=== PATIENT | female | born 1995 | race Caucasian/White ===

== ENCOUNTER 2017-07-12 03:35 | Emergency (ER) | payer MEDICAID ==
[2017-07-12] MEDS ORDERED: LIDOcaine 1.5% w/epinephrine 1:200,000 5ml ampul IJ ONE (04:05)
[2017-07-12] MEDS ORDERED: TETanus/Pertussis (Acell)/Diphther VAC/PF (Tdap-Adult) 0.5ml syringe IMVAC ONE (04:05)
[2017-07-12 05:51] VITALS: BP 128/81
== END 2017-07-12 05:30 | disposition home or self-care (01) ==
LOC: ER 03:36
DX: S61.411A Laceration without foreign body of right hand, initial encounter (principal); F10.129 Alcohol abuse with intoxication, unspecified; F12.10 Cannabis abuse, uncomplicated; Y90.9 Presence of alcohol in blood, level not specified; W01.110A Fall on same level from slipping, tripping and stumbling with subsequent striking against sharp glass, initial encounter; Y93.89 Activity, other specified; Y92.090 Kitchen in other non-institutional residence as the place of occurrence of the external cause; Y99.8 Other external cause status
CPT/HCPCS: 12001; 73120; 99284; A6449; J3490

== ENCOUNTER 2022-07-27 09:44 | Emergency (ER) | payer MEDICAID ==
[~2022-07-27] VITALS: Ht 162.6 cm; Wt 119.2 kg
[2022-07-27 10:29] LABS: BASOPHILS # (AUTO) 0.1 X10'3 (0-0.2); BASOPHILS % (AUTO) 0.5 % (0-1); EOSINOPHILS # (AUTO) 0.4 X10'3 (0-0.9); EOSINOPHILS % (AUTO) 3.8 % (0-6); HEMATOCRIT 43.3 % (35.0-45.0); HEMOGLOBIN 14.5 g/dl (12.0-16.0); LYMPHOCYTES % (AUTO) 19.2 % (21-51); MEAN CORPUSCULAR HGB CONC 33.4 g/dL (33.0-36.5); MEAN CORPUSCULAR VOLUME 86.7 FL (78-98); MEAN PLATELET VOLUME 8.8 FL (7.4-10.4); MONOCYTES # (AUTO) 0.4 X10'3 (0-0.9); MONOCYTES % (AUTO) 4.3 % (2-12); NEUTROPHILS # (AUTO) 7.5 X10'3 (1.8-7.7); NEUTROPHILS % (AUTO) 72.2 % (42-75); PLATELET COUNT 360 X10'3 (140-440); RED CELL DISTRIBUTION WIDTH 13.4 % (11.5-14.5); WHITE BLOOD COUNT 10.4 X10'3 (4.5-11.0)
[2022-07-27 10:44] LABS: URINE HCG NEGATIVE (NEG)
[2022-07-27 10:45] LABS: CLARITY,URINE SLIGHTLY CLOUDY (Clear); COLOR,URINE STRAW (Yellow); GLUCOSE, URINE NEGATIVE (Neg); KETONES,URINE NEGATIVE (Neg); LEUKOCYTE ESTERASE ,URINE NEGATIVE (Neg); NITRITES, URINE NEGATIVE (Neg); OCCULT BLOOD,URINE NEGATIVE (Neg); PROTEIN,URINE NEGATIVE (Neg); UROBILINOGEN,URINE 0.2 E.U/dL (0.2-1.0)
[2022-07-27 10:46] LABS: ALANINE AMINOTRANSFERASE 28 U/L (12-78); ALBUMIN 3.6 G/DL (3.4-5.0); ALBUMIN/GLOBULIN RATIO 0.8 (1.1-1.5); ALKALINE PHOSPHATASE 94 IU/L (46-116); ANION GAP 5 (8-16); ASPARTATE AMINO TRANSFERASE 15 U/L (10-37); BILIRUBIN,TOTAL 0.3 MG/DL (0.1-1.0); BLOOD UREA NITROGEN 8 MG/DL (7-18); BUN/CREATININE RATIO 12.7 (10.0-20.0); CALCIUM 9.7 MG/DL (8.5-10.1); CHLORIDE 101 MMOL/L (99-107); CREATININE 0.63 MG/DL (0.40-0.90); GLUCOSE 117 MG/DL (70-104); LIPASE 57 U/L (73-393); POTASSIUM 4.4 MMOL/L (3.5-5.1); SODIUM 137 MMOL/L (135-145); TOTAL CARBON DIOXIDE 30.9 MMOL/L (24-32); TOTAL PROTEIN 8.1 G/DL (6.4-8.2); eGFR > 90 ML/MIN
[2022-07-27 10:58] LABS: UA COLLECTION TYPE CLN CATCH MIDSTREAM
[2022-07-27 11:03] LABS: SQUAMOUS EPITHELIAL CELL,UR MODERATE /LPF (FEW)
[2022-07-27 11:04] LABS: MUCUS STRANDS FEW /LPF (Neg)
[2022-07-27 11:05] LABS: BACTERIA,URINE FEW /HPF (Neg)
[2022-07-27 11:06] LABS: RBC,URINE 0-2 /HPF (0-2); WBC,URINE 0-4 /HPF (0-4)
[2022-07-27] MEDS ORDERED: ketorolac trometh inj. 60 MG/2 ML VIAL IM ONE (11:25)
--- NOTE | 2022-07-27 11:42 | NUR ---
ultrasound in room for procedure
[2022-07-27 12:17] VITALS: BP 142/91
== END 2022-07-27 13:38 | disposition home or self-care (01) ==
LOC: ER 09:45
DX: N83.292 Other ovarian cyst, left side (principal); F41.9 Anxiety disorder, unspecified; F12.90 Cannabis use, unspecified, uncomplicated
CPT/HCPCS: 36415; 76830; 76857; 80053; 81001; 81025; 83690; 85025; 93976; 96372; 99285; J1885